=== PATIENT | male | born 1990 | race Caucasian/White ===

== ENCOUNTER 2017-10-26 20:57 | Emergency (ER) | payer MEDICAID ==
[~2017-10-26] VITALS: Ht 180.3 cm; Wt 72.6 kg
[2017-10-26] MEDS ORDERED: GENVOYA TABLET1 EACH PO (21:06)
[2017-10-26] MEDS ORDERED: ZOLOFT100 MG ORAL (21:06)
[2017-10-26 21:10] VITALS: BP 120/79
[2017-10-26] MEDS ORDERED: AUGMENTIN 875-1 EAC1 ORAL (21:18)
[2017-10-26] MEDS ORDERED: VENTOLIN HFA18 GM INH (21:18)
[2017-10-26 21:20] VITALS: BP 130/79
--- NOTE | 2017-10-26 21:22 | Emergency Room Report ---
History of Present Illness General Chief Complaint: Upper Respiratory Illness Source: Patient Present Illness HPI 27-year-old male presents with one month of sinus congestion with purulent drainage. States he has seasonal sinusitis, has taken antibiotics in the past. Has never had CT scan of sinusitis or been seen by ENT for formal diagnoses of recurrent chronic sinusitis. Patient also endorsing is one week of cough with audible wheezing. Denies history of asthma or COPD. Denies any fever or chills. Allergies: Coded Allergies: PENICILLINS (Verified Allergy, Unknown, 10/26/17) Patient History Past Medical History: none Past Surgical History: none Pertinent Family History: none Social History: Denies: smoking, alcohol use, drug use Now: No Immunizations: UTD Reviewed Nursing Documentation: PMH: Agreed, PSxH: Agreed Nursing Documentation-PMH History Of Psychiatric Problem: Yes - DEPRESSION Review of Systems All Other Systems: negative except mentioned in HPI Physical Exam Vital Signs Date Time Temp Pulse Resp B/P (MAP) Pulse Ox O2 Delivery O2 Flow Rate FiO2 10/26/17 21:00 99.0 87 16 121/80 96 Room Air Sp02 EP Interpretation: reviewed, normal General Appearance: normal inspection, well appearing, no apparent distress, alert, GCS 15, non-toxic Head: normocephalic, atraumatic Eyes: bilateral eye PERRL, bilateral eye EOMI ENT: normal ENT inspection, hearing grossly normal, normal pharynx, no angioedema, normal voice, TMs + canals normal, uvula midline, moist mucus membranes Neck: normal inspection, full range of motion, supple, thyroid normal, no meningismus, no bony tend Respiratory: normal inspection, lungs clear, normal breath sounds, no rhonchi, no respiratory distress, no retraction, no accessory muscle use, speaking full sentences, wheezing Cardiovascular #1: regular rate, rhythm, no edema, no JVD, normal capillary refill Gastrointestinal: normal inspection, normal bowel sounds, non tender, soft, no mass, no peritonitis, non-distended, no guarding, no hernia, no pulsatile mass Genitourinary: no CVA tenderness Musculoskeletal: normal inspection, back normal, normal range of motion, no calf tenderness, pelvis stable, Aldo's Sign negative Neurologic: normal inspection, alert, oriented x3, responsive, apiculturist III-XII nml as tested, motor strength/tone normal, cerebellar normal, normal gait, speech normal Psychiatric: normal inspection, judgement/insight normal, mood/affect normal, no suicidal/homicidal ideation, no delusions Skin: normal inspection, normal color, no rash Lymphatic: normal inspection, no adenopathy Medical Decision Making Diagnostic Impression: Primary Impression: Upper respiratory infection Qualified Codes: J06.9 - Acute upper respiratory infection, unspecified Additional Impressions: Sinusitis Qualified Codes: J01.11 - Acute recurrent frontal sinusitis Bronchitis ER Course URI/bronchitis: No history of asthma. Has some wheezing here but not tachypnea or hypoxia. Will prescribe albuterol as needed for wheezing, chest tightness. Recurrent seasonal sinusitis. Will give Augmentin antibiotics Patient had endorses allergy to penicillins, states he's been told this by his mother's and who is younger however no recent documented allergy ever to antibiotics. Is given dose of Augmentin in the ER and tolerated well. We'll discharge with Augmentin with close primary care followup and possible ENT referral for sinusitis. ER course: Patient has remained stable during ED stay. Disposition: Patient is to be discharged to home. Prescriptions given are augmentin, ventolin Patient is instructed to follow up with their primary care doctor within 5 days. Strict return precautions discussed with patient such as fever, chills, worsening/severe pain, nausea, vomiting, which may indicate severe illness. Patient verbalizes understanding and agrees with plan. Please note that this Emergency Department Report was dictated using [employer] security consultant technology software, occasionally this can lead to erroneous entry secondary to interpretation by the dictation equipment Last Vital Signs Date Time Temp Pulse Resp B/P (MAP) Pulse Ox O2 Delivery O2 Flow Rate FiO2 10/26/17 21:00 99.0 87 16 121/80 96 Room Air Status: improved Disposition: HOME, SELF-CARE Condition: Improved Scripts Albuterol Sulfate (VENTOLIN HFA) 18 Gm Hfa.aer.ad 1 PUFF INH EVERY 6 HOURS for SOB, wheeze, #18 GM 0 Refills Prov: DREA WATTS M.D. 10/26/17 Amoxicillin/Potassium Clav 875-125* (AUGMENTIN 875-125 TABLET*) 1 Each Tablet 1 TAB ORAL TWICE A DAY for 7 Days, #14 TAB Prov: DREA WATTS M.D. 10/26/17 Patient Instructions: Sinusitis, Adult, [id number], Upper Respiratory Infection, Adult DREA WATTS M.D. Oct 26, 2017 21:22
[2017-10-26] MEDS ORDERED: Augmentin 875mg Tab ORAL ONE (21:30)
[2017-10-26 22:25] VITALS: BP 130/79
== END 2017-10-26 22:25 | disposition home or self-care (01) ==
LOC: EMR 21:30
DX: J06.9 Acute upper respiratory infection, unspecified (principal); J01.11 Acute recurrent frontal sinusitis; J20.9 Acute bronchitis, unspecified; F32.9 Major depressive disorder, single episode, unspecified; Z88.0 Allergy status to penicillin
CPT/HCPCS: 99283

== ENCOUNTER 2018-05-23 16:03 | Emergency (ER) | payer MEDICAID ==
[~2018-05-23] VITALS: Ht 180.3 cm; Wt 68.0 kg
[~2018-05-23 16:03] MED LIST: AUGMENTIN 875-1 EAC1 ORAL; GENVOYA TABLET1 EACH PO; VENTOLIN HFA18 GM INH; ZOLOFT100 MG ORAL
[2018-05-23 16:20] VITALS: BP 120/78
--- NOTE | 2018-05-23 16:30 | Emergency Room Report ---
History of Present Illness General Chief Complaint: Flu Like Symptoms Source: Patient Present Illness HPI patient is a 28-year-old male with no significant past medical history here complaining of 2 weeks of productive cough with green phlegm, intermittent fevers/chills, denying shortness of breath and sore throat. Patient started taking amoxicillin given by his partner 2 days ago with no improvement. Has not tried any other [id number]-[id number] medication. Denies smoking or being exposed to smoking. Denies hemoptysis, nausea/vomiting,. Complains of his cough making his hemorrhoids worse and having minor diarrhea. Denies sinus pressure and ear pain. Denies SOB and wheezing, chest pain, palpitations, dizziness, headache and all other associated symptoms Allergies: Coded Allergies: No Known Allergies (Unverified , 05/23/18) Patient History Past Medical History: see triage record Past Surgical History: none Immunizations: UTD Reviewed Nursing Documentation: PMH: Agreed; PSxH: Agreed Nursing Documentation-PMH Past Medical History: No History, Except For Review of Systems All Other Systems: negative except mentioned in HPI Physical Exam Vital Signs Date Time Temp Pulse Resp B/P (MAP) Pulse Ox O2 Delivery O2 Flow Rate FiO2 05/23/18 16:10 98.3 86 14 120/78 99 Room Air 98.2 Sp02 EP Interpretation: reviewed, normal General Appearance: normal inspection, well appearing, alert Head: normocephalic Eyes: bilateral eye normal inspection, bilateral eye PERRL ENT: hearing grossly normal, normal pharynx, no angioedema, TMs + canals normal , pharyngeal erythema Neck: normal inspection, full range of motion, supple Respiratory: normal inspection, chest non-tender, lungs clear, no rhonchi, no respiratory distress, no retraction, no accessory muscle use, no wheezing Cardiovascular #1: normal inspection, no gallop, no murmur, no rub Gastrointestinal: normal inspection, soft Rectal: deferred Genitourinary: deferred Neurologic: normal inspection, alert, oriented x3 Psychiatric: normal inspection, judgement/insight normal Skin: normal inspection, normal color, no rash, warm/dry Lymphatic: normal inspection, no adenopathy Medical Decision Making PA Attestation all diagnosis and treatment plans were reviewed with my supervising physician Dr. Wilson Diagnostic Impression: Primary Impression: Bronchitis ER Course patient is a 28-year-old male with no significant past medical history here complaining of 2 weeks of productive cough with green phlegm, intermittent fevers/chills, denying shortness of breath and sore throat. Patient started taking amoxicillin given by his partner 2 days ago with no improvement. Has not tried any other kjfi-jxe-enpxkix medication. Denies smoking or being exposed to smoking. Denies hemoptysis, nausea/vomiting,. Complains of his cough making his hemorrhoids worse and having minor diarrhea. Denies sinus pressure and ear pain. Denies SOB and wheezing, chest pain, palpitations, dizziness, headache and all other associated symptoms Ddx considered but are not limited to acute bronchitis, URI, pneumonia Vital signs: are WNL, pt. is afebrile H&PE are most consistent with acute bronchitis ORDERS: azithromycin, [facility]azar ED INTERVENTIONS: None required at this time. DISCHARGE: At this time pt. is stable for d/c to home. Will provide printed patient care instructions, and any necessary prescriptions. Care plan and follow up instructions have been discussed with the patient prior to discharge.discontinued taking the amoxicillin, avoid exposure to smoking and allergens, fever chills or testing clinic Last Vital Signs Date Time Temp Pulse Resp B/P (MAP) Pulse Ox O2 Delivery O2 Flow Rate FiO2 05/23/18 16:10 98.3 86 14 120/78 99 Room Air 98.2 Disposition: HOME, SELF-CARE Condition: Stable Scripts Benzonatate (Carinasalon Hong) 100 Mg Capsule 100 MG ORAL THREE TIMES A DAY for 10 Days, #30 PERLE Prov: Rancho Hernandez 05/23/18 Azithromycin* (ZITHROMAX*) 250 Mg Tablet 250 MG ORAL DAILY, #6 TAB 0 Refills Take two tables once daily for 1 day, then one tablet once daily for 4 days. Prov: Rancho Hernandez 05/23/18 Patient Instructions: Acute Bronchitis, [id number] Additional Instructions: avoid smoking, take medications as directed, avoid going to area is that he will be exposed to allergens, chest pain shortness of breath, good emergency room Rancho Hernandez May 23, 2018 16:30
[2018-05-23] MEDS ORDERED: TESSALON PERLE100 M2 ORAL (16:33)
[2018-05-23] MEDS ORDERED: ZITHROMAX250 MG ORAL (16:33)
[2018-05-23 16:43] VITALS: BP 120/78
== END 2018-05-23 16:43 | disposition home or self-care (01) ==
LOC: EMR 16:30
DX: J40 Bronchitis, not specified as acute or chronic (principal)
CPT/HCPCS: 99283

== ENCOUNTER 2018-06-13 19:26 | Emergency (ER) | payer MEDICAID ==
[~2018-06-13] VITALS: Ht 180.3 cm; Wt 59.0 kg
[~2018-06-13 19:26] MED LIST changes: +TESSALON PERLE100 M2 ORAL; +ZITHROMAX250 MG ORAL
[2018-06-13 19:32] VITALS: BP 133/86
--- NOTE | 2018-06-13 20:26 | Emergency Room Report ---
History of Present Illness General Chief Complaint: Headache Source: Patient Present Illness HPI patient is a 28-year-old male with significant past medical history of migraine headache without aura here complaining of one day of acute migraine headache with photophobia and nausea and vomiting. Rating the pain 10 out of 10 without radiation has taken Advil with minimal improvement. Denies vision changes, syncope, chest pain, palpitation, denies alcohol intake and tobacco use has not seen his doctor regarding his migraine headach in a few months Allergies: Coded Allergies: No Known Allergies (Unverified , 05/23/18) Patient History Past Medical History: see triage record Past Surgical History: none Immunizations: UTD Reviewed Nursing Documentation: PMH: Agreed; PSxH: Agreed Nursing Documentation-PMH Past Medical History: No History, Except For Review of Systems All Other Systems: negative except mentioned in HPI Physical Exam Vital Signs Date Time Temp Pulse Resp B/P (MAP) Pulse Ox O2 Delivery O2 Flow Rate FiO2 06/13/18 19:30 97.6 77 19 133/86 97 Room Air 97.5 Sp02 EP Interpretation: reviewed, normal General Appearance: alert, GCS 15, moderate distress Head: normocephalic, atraumatic Eyes: bilateral eye normal inspection, bilateral eye PERRL ENT: normal ENT inspection, hearing grossly normal, normal pharynx Neck: normal inspection, full range of motion, supple Respiratory: normal inspection, no rhonchi, no wheezing Cardiovascular #1: normal inspection, no edema, no gallop, no murmur Gastrointestinal: normal inspection, non tender, soft Rectal: deferred Genitourinary: deferred Musculoskeletal: normal inspection, back normal, digits/nails normal Neurologic: normal inspection, alert, oriented x3, normal gait, speech normal Psychiatric: normal inspection, judgement/insight normal, memory normal Skin: normal inspection, normal color Lymphatic: normal inspection, no adenopathy Medical Decision Making PA Attestation all diagnoses and treatment plans were reviewed and discussed my supervising physician Dr. Ramírez Diagnostic Impression: Primary Impression: Migraine headache ER Course patient is a 28-year-old male with significant past medical history of migraine headache without aura here complaining of one day of acute migraine headache with photophobia and nausea and vomiting. Rating the pain 10 out of 10 without radiation has taken Advil with minimal improvement. Denies vision changes, syncope, chest pain, palpitation, denies alcohol intake and tobacco use has not seen his doctor regarding his migraine headach in a few months Ddx considered but are not limited to acute migraine headache, cluster headache Vital signs: are WNL, pt. is afebrile H&PE are most consistent with acute migraine headache ORDERS:Toradol 60 IM, sumatriptan ED INTERVENTIONS:for L 60 im DISCHARGE: At this time pt. is stable for d/c to home. Will provide printed patient care instructions, and any necessary prescriptions. Care plan and follow up instructions have been discussed with the patient prior to discharge. follow with her primary care provider for further assessment of migraine headache for a flexible sigmoidoscopy measures may be needed on daily basis as patient is having multiple migraine headaches for months Last Vital Signs Date Time Temp Pulse Resp B/P (MAP) Pulse Ox O2 Delivery O2 Flow Rate FiO2 06/13/18 19:32 97.5 19 133/86 97 Room Air 97.5 06/13/18 19:30 77 Disposition: HOME, SELF-CARE Condition: Stable Scripts Ondansetron* (ZOFRAN*) 4 Mg Tablet 4 MG ORAL Q6H PRN for Nausea & Vomiting, #10 TAB Prov: Rancho Hernandez 06/13/18 Sumatriptan Succinate* (IMITREX*) 50 Mg Tablet 25 MG ORAL DAILY PRN MIGRAINE, #14 TAB Prov: Rancho Hernandez 06/13/18 Patient Instructions: Migraine Headache Additional Instructions: medication as directed for acute attacks follow-up with a primary care provider for more assessment migraine headache prophylactic measures may be needed Rancho Hernandez Jun 13, 2018 20:26
[2018-06-13] MEDS ORDERED: ZOFRAN4 M3 ORAL (20:28)
[2018-06-13] MEDS ORDERED: IMITREX50 MG ORAL (20:28)
[2018-06-13] MEDS ORDERED: Ketorolac 60mg Inj IM ONE (20:30)
[2018-06-13 20:55] VITALS: BP 133/86
== END 2018-06-13 20:55 | disposition home or self-care (01) ==
LOC: EMR 20:40
DX: G43.909 Migraine, unspecified, not intractable, without status migrainosus (principal)
CPT/HCPCS: 96372; 99283